=== PATIENT | male | born 1990 | race Caucasian/White ===

== ENCOUNTER 2017-08-24 23:38 | Emergency (ER) | payer OTHER ==
[2017-08-25] MEDS ORDERED: Phenylephrine INJ* 10 MG/ML 1 ML VIAL (10 MG) IM ONE (00:37)
[2017-08-25] MEDS ORDERED: Lidocaine 1%* 5 ML VIAL ONE (00:47)
[2017-08-25] MEDS ORDERED: Morphine INJ* 2 MG/ML 1 ML SYRINGE (TWO MG - NEW SYRINGE VERSION) ONE (01:30)
[2017-08-25] MEDS ORDERED: Ondansetron INJ* 2 MG/ML VIAL ONE (01:30)
[2017-08-25] MEDS ORDERED: Morphine INJ* 2 MG/ML 1 ML CARPUJECT IV ONE (01:31)
[2017-08-25] MEDS ORDERED: Ondansetron INJ* 2 MG/ML VIAL IV ONE (01:31)
[2017-08-25] MEDS ORDERED: LORazepam INJ* 2 MG/ML 1 ML VIAL ONE (01:51)
[2017-08-25] MEDS ORDERED: LORazepam INJ* 2 MG/ML 1 ML VIAL IV PUSH ONE (01:54)
[2017-08-25 05:54] VITALS: BP 106/54
--- NOTE | 2017-08-25 09:16 | ED ---
Jean Walsh Benjamin, scribed for Raymond Villarreal MD on 08/25/17 at 0042 . GI/ HPI - HPI Summary HPI Summary: 27yo male c/o erection since 0700 this morning. This is the third time in 3 weeks. Pt denies taking any medications besides vitamin pills. Penis is painful due to pressure but denies any testicular pain. Able to urinate without any problems. Pt denies any hx of STI. Pt has been abstinent for a year. - History of Current Complaint Chief Complaint: EDUrogenitalProblems Stated Complaint: GENITAL ISSUE Hx Obtained From: Patient Onset/Duration: Started Hours Ago - since 0700 today Timing: Constant Severity: Moderate Current Severity: Moderate Pain Intensity: 8 Additional Locations for Males: Penis Pain Characteristics: Pressure Associated Signs and Symptoms: Positive: Other: - erect penis - Allergy/Home Medications Allergies/Adverse Reactions: Allergies Allergy/AdvReac Type Severity Reaction Status Date / Time [facility] Allergy Hives Verified 08/24/17 23:45 PMH/Surg Hx/FS Hx/Imm Hx GI History: Reports: Other GI Disorders - gastric bypass Infectious Disease History: No Infectious Disease History: Denies: Traveled Outside the [place] in Last 30 Days - Family History Known Family History: Positive: Cardiac Disease, Hypertension, Diabetes - Social History Occupation: Employed Full-time Lives: Alone Alcohol Use: None Hx Substance Use: No Substance Use Type: Reports: Marijuana Hx Tobacco Use: No Smoking Status (MU): Never Smoked Tobacco Review of Systems Constitutional: Negative Eyes: Negative ENT: Negative Cardiovascular: Negative Respiratory: Negative Gastrointestinal: Negative Genitourinary: Other - erected penis Musculoskeletal: Negative Skin: Negative Neurological: Negative Psychological: Normal All Other Systems Reviewed And Are Negative: Yes Physical Exam - Summary Physical Exam Summary: Appearance: Well-appearing, Well-nourished Skin: Warm, normal appearing skin Eyes: Normal ENT: Normal Neck: Supple, nontender Respiratory: Clear to auscultation Cardiovascular: Normal Abdomen: Soft, nontender : tumescent penis. Tender to Palpation. normal appearing skin. Detumescence achieved with needle aspiration and phenylephrine Bowel: Present Musculoskeletal: Normal, Strength/ROM Intact Neurological: Normal, A&Ox3 Psychiatric: Normal Triage Information Reviewed: Yes Vital Signs On Initial Exam: Initial Vitals Temp Pulse Resp BP Pulse Ox 97.9 F 73 16 143/73 100 12/04/17 23:41 08/24/17 23:41 08/24/17 23:41 08/24/17 23:41 08/24/17 23:41 Vital Signs Reviewed: Yes Procedures - Procedure Summary Procedure Summary: procedure: needle drainage for priapism: skin on base of penis cleaned with chlorhexidine, butterfly needle inserted into b/l corpora cavernosum, total of 60cc of blood drained, administered approx 500mcg of phenylephrine b/L, detumescence achieved, pt tolerated procedure well and says pain is completely relieved. Procedure performed under cardiac monitoring. Diagnostics - Vital Signs Vital Signs Temp Pulse Resp BP Pulse Ox 08/24/17 23:41 97.9 F 73 16 143/73 100 - Laboratory Lab Statement: Any lab studies that have been ordered have been reviewed, and results considered in the medical decision making process. Re-Evaluation - Re-Evaluation First Eval Change: Improved - much better after procedure GIGU Course/Dx - Course Course Of Treatment: Consulted Dr. Perkins (Urologist) at 0049 hour. - Diagnoses Provider Diagnoses: Priapism - Critical Care Time Critical Care Time: 30-74 min - 30 minutes Discharge - Discharge Plan Condition: Improved Disposition: HOME Patient Education Materials: Priapism (ED) Referrals: No Primary Care Phys,NOPCP [Primary Care Provider] - Oseas Perkins MD [Medical Doctor] - Additional Instructions: PLEASE MAKE AN APPOINTMENT TO BE SEEN BY A UROLOGIST WITHIN 1 WEEK PLEASE RETURN IMMEDIATELY TO THE ER IF YOU HAVE ANY WORSENING OR CONCERNING SYMPTOMS PLEASE MAKE AN APPOINTMENT TO BE SEEN BY YOUR PRIMARY CARE DOCTOR WITHIN 1 WEEK The documentation as recorded by the Jean tran Benjamin accurately reflects the service I personally performed and the decisions made by me, Raymond Villarreal MD.
== END 2017-08-25 05:51 | disposition home or self-care (01) ==
LOC: ED 23:38
DX: N48.30 Priapism, unspecified (principal)
CPT/HCPCS: 96372; 99283; J2060; J2270; J2405

== ENCOUNTER 2017-11-16 21:46 | Emergency (ER) | payer OTHER ==
[2017-11-16] MEDS ORDERED: Ondansetron INJ* 2 MG/ML VIAL IV ONE (22:44)
[2017-11-16] MEDS ORDERED: Morphine INJ* 4 MG/ML 1 ML SYRINGE (NEW SYRINGE VERSION) IV ONE (22:44)
[2017-11-16] MEDS ORDERED: Phenylephrine INJ* 10 MG/ML 1 ML VIAL (10 MG) ONE (23:00)
[2017-11-17] MEDS ORDERED: Morphine INJ* 4 MG/ML 1 ML SYRINGE (NEW SYRINGE VERSION) ONE (00:05)
[2017-11-17] MEDS ORDERED: Morphine INJ* 4 MG/ML 1 ML SYRINGE (NEW SYRINGE VERSION) IV ONE (00:10)
[2017-11-17 01:57] VITALS: BP 131/76
--- NOTE | 2017-11-22 21:53 | ED ---
Isabell Walsh Rebecca, scribed for Florence Mckeon MD on 11/16/17 at 2247 . Complex/Multi-Sys Presentation - HPI Summary HPI Summary: Pt is a 27 y/o M who presents to ED c/o erection for about 10 hours, since noon today. Pt reports sx began today at noon while in the shower. Pain is currently severe, ranked 10/10 and has been constant since onset. Pain slightly alleviated by standing, aggravated by nothing. Prior similar symptoms about 1 month ago during which he was [place] [facility] he reports it was [place]. Pt denies being on any medications. - History Of Current Complaint Chief Complaint: EDGeneral Time Seen by Provider: 11/16/17 22:31 Hx Obtained From: Patient Onset/Duration: Still Present Timing: Constant Severity Initially: Severe Location: Pain At: - Penis Aggravating Factor(s): Nothing Alleviating Factor(s): Standing Associated Signs And Symptoms: Positive: Other - Erection Related History: Similar Episode/Diagnosed As: - About 1 month ago - Allergies/Home Medications Allergies/Adverse Reactions: Allergies Allergy/AdvReac Type Severity Reaction Status Date / Time MS Cefaclor [From [facility]] Allergy Hives Verified 08/24/17 23:45 PMH/Surg Hx/FS Hx/Imm Hx GI History: Reports: Other GI Disorders - gastric bypass Opthamlomology History: Denies: Hx Legally Blind Infectious Disease History: No Infectious Disease History: Denies: Traveled Outside the [place] in Last 30 Days - Family History Known Family History: Positive: Cardiac Disease, Hypertension, Diabetes - Social History Alcohol Use: None Hx Substance Use: No Substance Use Type: Reports: Marijuana Substance Use Comment - Amount & Last Used: daily Hx Tobacco Use: No Smoking Status (MU): Never Smoked Tobacco Review of Systems Negative: Fever Positive: other - Erectoin for >10 hours All Other Systems Reviewed And Are Negative: Yes Physical Exam - Summary Physical Exam Summary: VITAL SIGNS: Reviewed. GENERAL: ~Patient is a well-developed and nourished male who is lying comfortable in the stretcher. Patient is not in any acute respiratory distress. HEAD AND FACE: No signs of trauma. No ecchymosis, hematomas or skull depressions. No sinus tenderness. EYES: PERRLA, EOMI x 2, No injected conjunctiva, no nystagmus. EARS: Hearing grossly intact. Ear canals and tympanic membranes are within normal limits. MOUTH: Oropharynx within normal limits. NECK: Supple, trachea is midline, no adenopathy, no JVD, no carotid bruit, no c- spine tenderness, neck with full ROM. CHEST: Symmetric, no tenderness at palpation LUNGS: Clear to auscultation bilaterally. No wheezing or crackles. CVS: Regular rate and rhythm, S1 and S2 present, no murmurs or gallops appreciated. ABDOMEN: Soft, non-tender. No signs of distention. No rebound no guarding, and no masses palpated. Bowel sounds are normal. EXTREMITIES: FROM in all major joints, no edema, no cyanosis or clubbing. NEURO: Alert and oriented x 3. No acute neurological deficits. Speech is normal and follows commands. SKIN: Dry and warm Groin: He has an erect, painful, rigid penis that is tender to touch. He is circumcised. Triage Information Reviewed: Yes Vital Signs On Initial Exam: Initial Vitals Temp Pulse Resp BP Pulse Ox 97.5 F 56 18 126/74 99 11/16/17 21:47 11/16/17 21:47 11/16/17 21:47 11/16/17 21:47 11/16/17 21:47 Vital Signs Reviewed: Yes Procedures - Procedure Summary Procedure Summary: 2325 - Priapism aspiration - Patient consented. A 21 gauge butterfly needle was used, done at the 9 o'clock position, close to the base of the penis. Upon insertion of the butterfly, blood came out freely. Drained 50 cc of dark blood and injected 1 cc of phenylephrine which is 500 micrograms. Patient did have significant relief, but he did not achieve total detumescence. 0030 - Priapism aspiration - Patient was still having an erection, though not as bad as when he first came in. Patient consented again. Used a 21 gauge butterfly needle, done at the 9 o'clock position, close to the base of the penis. Drained 30 cc of blood and injected him with 2 cc of phenylephrine, which is about 1000 micvrograms. Pt improved, but there was no total detumescence. Blood was send for ABG and is consistent with ischemic priopism. Diagnostics - Vital Signs Vital Signs Temp Pulse Resp BP Pulse Ox 11/16/17 22:03 71 100 11/16/17 22:01 147/86 11/16/17 21:47 97.5 F 56 18 126/74 99 - Laboratory Lab Statement: Any lab studies that have been ordered have been reviewed, and results considered in the medical decision making process. Re-Evaluation - Re-Evaluation First Eval Re-Evaluation Time: 23:25 Comment: Performed drainage, see procedure note. Second Eval Re-Evaluation Time: 00:02 Change: Improved Third Eval Re-Evaluation Time: 00:30 Comment: Did second drainage, see procedure note. Fourth Eval Re-Evaluation Time: 01:30 Comment: Discussed the recommendatoin by Dr. Perkins to be transferred to [facility]. Discussed the dangers and risks with not being transferred and the pt understands and refuses. Instead, he is opting to leave AMA. Complex Multi-Symp Course/Dx Assessment/Plan: Pt is a 27 y/o M who presents to ED c/o erection for about 10 hours, since noon today. Pt reports sx began today at noon while in the shower. Pain is currently severe, ranked 10/10 and has been constant since onset. Pain slightly alleviated by standing. Prior similar symptoms about 1 month ago during which he was treated [place] [facility] [place] where he reports it was drained. Pt denies being on any medications. Two priapism aspirations were done in the ED course, with full procedure notes above and an ABG was done with the blood collected. Discussed the case with Dr. Perkins at 0120 who advised that because total detumescence was not achieved, he may need surgical intervention, which is a shunt. Recommended transfer to [facility] for further treatment. Upon discussion with the pt, explaining that he may need surgical intervention and to be transferred, the pt refused, insisting that he wants to be discharged. Explained the risks of such to the patient including but not limited to permanent damage to the penis and permanent impotence. Pt verbalized his understanding and still wants to be D/C. Pt will leave AMA with a Dx of ischemic priapism. - Diagnoses Provider Diagnoses: ischemic priapism - Physician Notifications Discussed Care Of Patient With: Oseas Perkins Time Discussed With Above Provider: 01:20 Instructed by Provider To: Other - Discussed the case with Dr. Perkins who advised that because total detumescence was not achieved, he may need surgical intervention, which is a shunt. Recommended transfer to [facility] for further treatment. Discharge - Discharge Plan Condition: Stable Disposition: AGAINST MEDICAL ADVICE Patient Education Materials: Priapism (ED) Referrals: Oseas Perkins MD [Medical Doctor] - 1 Day Additional Instructions: RETURN TO EMERGENCY DEPARTMENT FOR ANY RETURNING OR WORSENING SYMPTOMS. The documentation as recorded by the Isabell tran Rebecca accurately reflects the service I personally performed and the decisions made by , Florence Mckeon MD.
== END 2017-11-17 01:57 | disposition left against medical advice (07) ==
LOC: ED 21:46
DX: N48.30 Priapism, unspecified (principal); Z98.84 Bariatric surgery status; Z88.1 Allergy status to other antibiotic agents
CPT/HCPCS: 36415; 82803; 96374; 96375; 96376; 99283; J2270; J2405

== ENCOUNTER 2019-01-11 10:46 | Emergency (ER) | payer OTHER ==
--- NOTE | 2019-01-11 11:10 | UC ---
Throat Pain/Nasal Kalen HPI - HPI Summary HPI Summary: 28 -year-old male with cold symptoms over the past 4 days. He has productive cough of brown sputum and a sore throat - History of Current Complaint Stated Complaint: SINUSES,COUGH,CHEST CONGESTION Time Seen by Provider: 01/11/19 11:01 Hx Obtained From: Patient Onset/Duration: Gradual Onset Severity: Mild Cough: Productive - Patient states he has productive cough occasionally with brown sputum. No history of asthma and stop smoking 6 years ago. Associated Signs & Symptoms: Positive: Negative Related History: Seasonal Allergies - Epiglottits Risk Factors Epiglottis Risk Factors: Negative - Allergies/Home Medications Allergies/Adverse Reactions: Allergies Allergy/AdvReac Type Severity Reaction Status Date / Time cefaclor [From [facility]] Allergy Hives Verified 01/11/19 11:19 Home Medications: Home Medications Bicalutamide [Casodex] 50 mg PO DAILY 01/11/19 [History Confirmed 01/11/19] PMH/Surg Hx/FS Hx/Imm Hx Previously Healthy: Yes - Family History Known Family History: Positive: Cardiac Disease, Hypertension, Diabetes - Social History Alcohol Use: None Substance Use Type: Marijuana Substance Use Comment - Amount & Last Used: daily Smoking Status (MU): Never Smoked Tobacco Review of Systems All Other Systems Reviewed And Are Negative: Yes ENT: Positive: Sore Throat Respiratory: Positive: Cough - Occasional cough with brown sputum at times. Gastrointestinal: Positive: Other - Gastric bypass surgery history. Is Patient Immunocompromised?: No Physical Exam Triage Information Reviewed: Yes Appearance: Well-Appearing, No Pain Distress, Well-Nourished Vital Signs Reviewed: Yes Eye Exam: Normal ENT: Positive: Pharyngeal erythema - Mild pharyngeal erythema, no exudate, uvula midline., TMs normal, Uvula midline. Negative: Tonsillar exudate, Trismus , Muffled voice, Hoarse voice Neck: Positive: Supple, Nontender, Enlarged Nodes @ - Bilateral tonsillar lymph node enlargement. Respiratory: Positive: Lungs clear, Normal breath sounds, No respiratory distress, No accessory muscle use Cardiovascular: Positive: RRR, No Murmur, Pulses Normal, Brisk Capillary Refill Abdomen Description: Positive: Nontender, No Organomegaly, Soft Bowel Sounds: Positive: Present Throat Pain/Nasal Course/Dx - Course Course Of Treatment: Rapid strep test was negative, chest x-ray: 2 views of the chest including dual energy PA views demonstrates no mediastinal shift. Heart is of normal size and configuration. Lung alarcon are clear. IMPRESSION: No active cardiopulmonary disease is noted. At this point time I believe this is a viral upper respiratory illness. The patient can increase fluids, rest follow-up with his primary care provider if no improvement in 3 or 4 days. - Differential Dx/Diagnosis Provider Diagnosis: Pharyngitis, URI (upper respiratory infection) Discharge - Sign-Out/Discharge Documenting (check all that apply): Patient Departure All imaging exams completed and their final reports reviewed: Yes - Discharge Plan Condition: Fair Disposition: HOME Patient Education Materials: Pharyngitis (ED) Forms: *Work Release Referrals: [facility] [Outside] No Primary Care Phys,NOPCP [Primary Care Provider] - Additional Instructions: Increase fluids, warm saltwater gargles, throat lozenges, Tylenol every 4 hours for fever. Follow-up with your primary care provider in 3 or 4 days if no improvement. You can call the [facility] clinic to establish medical care in the area. - Billing Disposition and Condition Condition: FAIR Disposition: Home
[2019-01-11 11:18] VITALS: BP 117/63
== END 2019-01-11 12:00 | disposition home or self-care (01) ==
LOC: UCCORT 10:46
DX: J02.9 Acute pharyngitis, unspecified (principal); Z88.1 Allergy status to other antibiotic agents
CPT/HCPCS: 71046; 87651; 99211; G0463

== ENCOUNTER 2019-12-02 10:55 | Emergency (ER) | payer BC, OTHER ==
--- NOTE | 2019-12-02 11:11 | UC ---
Respiratory Complaint HPI - HPI Summary HPI Summary: 29 yo with 3 day history of cough and congestion, with increased shortness of breath since last night. Awoke at 0200 with breathlessness. She has not had fever or chills, myalgias or headache. Onset of symptoms 11/29/2019. Travelled to [facility] with his sister and spent the day in patient care areas of [facility] on 11/21/19. Contacted highway research engineer there who advised testing for COVID based on presence of case at [facility]. In the past, has had bronchitis, remote childhood asthma, no recent use of bronchodilators. - History of Current Complaint Stated Complaint: COUGH,SOB Time Seen by Provider: 12/02/19 10:59 Hx Obtained From: Patient Onset/Duration: Gradual Onset, Lasting Days - 3 Timing: Intermittent Episodes Severity Initially: Moderate Severity Currently: Moderate Character: Cough: Nonproductive Aggravating Factors: Recumbent Position Alleviating Factors: Nothing Associated Signs And Symptoms: Positive: Dyspnea. Negative: Fever, Chills, Wheezing, Hemoptysis - Risk Factors Pulmonary Embolism Risk Factors: Negative Cardiac Risk Factors: Negative Pseudomonas Risk Factors: Negative Tuberculosis Risk Factors: Negative - Allergies/Home Medications Allergies/Adverse Reactions: Allergies Allergy/AdvReac Type Severity Reaction Status Date / Time cefaclor [From [facility]] Allergy Hives Verified 12/02/19 11:23 Home Medications: Home Medications Bicalutamide [Casodex] 50 mg PO DAILY 01/11/19 [History Confirmed 12/02/19] Sambucol adolfo PO Q3H PRN 12/02/19 [History] PMH/Surg Hx/FS Hx/Imm Hx Previously Healthy: Yes - Surgical History Surgical History: Yes Surgery Procedure, Year, and Place: Bypass surgery 06/06- lost 300 lbs - Family History Known Family History: Positive: Cardiac Disease, Hypertension, Diabetes, Other - sister with lung transplant for cystic fibrosis 06/2019 - Social History Lives: Dormitory/Roommates Alcohol Use: None Substance Use Type: Marijuana Substance Use Comment - Amount & Last Used: daily Smoking Status (MU): Never Smoked Tobacco When Did the Patient Quit Smoking/Using Tobacco: 6 years Review of Systems All Other Systems Reviewed And Are Negative: Yes Constitutional: Positive: Fatigue Skin: Positive: Negative Eyes: Positive: Negative ENT: Positive: Negative Respiratory: Positive: Shortness Of Breath, Cough Cardiovascular: Positive: Negative Gastrointestinal: Positive: Negative Genitourinary: Positive: Negative Motor: Positive: Negative Neurovascular: Positive: Negative Musculoskeletal: Positive: Negative Neurological/Mental Status: Positive: Negative. Negative: Headache Psychological: Positive: Negative Is Patient Immunocompromised?: No Physical Exam Triage Information Reviewed: Yes Appearance: No Pain Distress, Ill-Appearing - looks mildly unwell, fatigued. Vital Signs Reviewed: Yes Eyes: Positive: Conjunctiva Clear ENT: Positive: Pharynx normal, TMs normal Neck: Positive: Supple, Nontender, No Lymphadenopathy Respiratory: Positive: Lungs clear, Normal breath sounds, No respiratory distress Cardiovascular: Positive: RRR, No Murmur Abdomen Description: Positive: Nontender, No Organomegaly, Soft Musculoskeletal Exam: Normal Neurological: Positive: Alert, Muscle Tone Normal Psychological Exam: Normal Skin Exam: Normal Diagnostics - Laboratory Lab Results: rapid flu and strep negative Respiratory Course/Dx - Course Course Of Treatment: Contacted Angélica Ramirez, infection control nurse, for guidance. I also spoke with Dr. Chanel. Given that sister had same exposure risk, and that Lenard's symptoms are mild, testing for COVID-19 was not advised. Lenard will continue to self monitor and assess and self isolate. - Differential Dx/Diagnosis Differential Diagnosis/HQI/PQRI: Bronchitis, Laryngitis, Lower Resp Infection, Sinusitis Provider Diagnosis: URI (upper respiratory infection) Discharge ED - Sign-Out/Discharge Documenting (check all that apply): Patient Departure All imaging exams completed and their final reports reviewed: No Studies - Discharge Plan Condition: Stable Disposition: HOME Patient Education Materials: Upper Respiratory Infection (ED) Referrals: No Primary Care Phys,NOPCP [Primary Care Provider] - Additional Instructions: As reviewed, testing for COVID has been deferred. At this time, you do not show findings of lower respiratory illness. Continue symptomatic treatment and self isolation as discussed. - Billing Disposition and Condition Condition: STABLE Disposition: Home
[2019-12-02 11:39] VITALS: BP 110/66
[2019-12-02 11:50] LABS: Influenza A Molecular Negative (Negative); Influenza B Molecular Negative (Negative)
== END 2019-12-02 12:29 | disposition home or self-care (01) ==
LOC: UCCORT 10:55
DX: J06.9 Acute upper respiratory infection, unspecified (principal); Z88.1 Allergy status to other antibiotic agents; R53.83 Other fatigue
CPT/HCPCS: 87651; 99211; G0463